=== PATIENT | female | born 1955 | race Caucasian/White ===

== ENCOUNTER 2016-08-03 03:35 | Observation (INO) | payer OTHER ==
[~2016-08-03] VITALS: Ht 165.1 cm; Wt 72.2 kg
[~2016-08-03 03:35] MED LIST: ASPEC81 PO; CALCTAB5 PO; CHOL100010 PO; METO25TA3 PO; MULT-506 PO; OMEG10007 PO; SIMV20TA2 PO
--- NOTE | 2016-08-03 04:28 | EMERGENCY ROOM VISIT NOTE ---
History Report prepared by Carolyn: Angely Chang Under the Supervision of: Dr. Michelle Vasquez M.D. First contact with patient: 04:13 Chief Complaint: RECTAL BLEEDING Stated Complaint: EXCRUCIATING BLEEDING FROM RECTUM Nursing Triage Summary: Patient states that she had a colonoscopy and had polyps removed at 1030 on 08/02. Reports that she began bleeding a moderate amount at 1330. Denies any clots being present. Reports that she has had multiple episodes of bleeding. States that she is starting to feel tired at this time. Denies pain. History of Present Illness The patient is a 61 year old female who presents to the Emergency Room with complaints of persistent rectal bleeding since yesterday afternoon around 1330. The patient states that she had a colonoscopy yesterday morning and had multiple polyps removed, including one that needed to be clamped. A couple of hours after the procedure, she had minimal amount of bleeding that was not concerning to her. A little later in the day she had a moderate amount of rectal bleeding that was bright red in color. Since then, she has had 8 total episodes of bloody bowel movements. The blood has gotten darker in color since her symptoms began. The patient takes 81 mg aspirin daily due to a history of headaches and she notes that she was not instructed to discontinue taking it prior to the procedure. She denies any abdominal or rectal pain. Source of History: patient Onset: yesterday at 1330 Position: other (GI) Symptom Intensity: 8 episodes Timing: other (persistent) Associated Symptoms: No abdominal pain Review of Systems See HPI for pertinent positives & negatives. A total of 10 systems reviewed and were otherwise negative. Past Medical & Surgical Medical Problems: (1) GI bleed (2) HTN (hypertension) Family History Cancer Diabetes mellitus Social History Smoking Status: Never Smoker Marital Status: Occupation Status: employed Current/Historical Medications Scheduled Calcium Carbonate (Caltrate 600), 1,200 MG PO DAILY Cholecalciferol (Vitamin D3), 2,000 INTERUNIT PO DAILY Fish Oil ([place]-3), 1 CAP PO BID Metoprolol Succ (Toprol Xl) (Toprol-Xl), 50 MG PO DAILY Multivitamin (Multivitamin), 1 TAB PO DAILY Simvastatin (Zocor), 20 MG PO QPM Allergies Coded Allergies: No Known Allergies (Unverified , 08/03/16) Physical Exam Vital Signs Date Time Temp Pulse Resp B/P Pulse Ox O2 Delivery O2 Flow Rate FiO2 08/03/16 05:54 90 20 152/74 99 Room Air 08/03/16 04:40 93 20 160/89 94 Room Air 08/03/16 03:39 37.1 100 20 155/87 100 Room Air Physical Exam Vital signs reviewed. General: Well-appearing 61 year old female, in no significant distress. HEENT: No scleral icterus, PERRLA, neck supple. Atraumatic. Cardiovascular: Regular rate and rhythm, no extra sounds. Pulmonary: Clear to auscultation bilaterally, normal work of breathing. Abdomen: Soft, nontender, nondistended, positive bowel sounds. Rectal: Grossly bloody liquid stools. Musculoskeletal: Atraumatic, no peripheral edema. Neurologic: Patient awake alert and oriented x 3 Skin: Warm, dry, no rash Medical Decision & Procedures ER Provider Diagnostic Interpretation: Chest and abdomen x-ray per my interpretation: No free air, no obstruction, lungs are clear. Laboratory Results 08/03/16 03:52 Red Blood Count 3.46, Mean Corpuscular Volume 95.7, Mean Corpuscular Hemoglobin 32.4, Mean Corpuscular Hemoglobin Concent 33.8, Mean Platelet Volume 10.1, Neutrophils (%) (Auto) 65.5, Lymphocytes (%) (Auto) 24.1, Monocytes (%) (Auto) 7.3, Eosinophils (%) (Auto) 2.8, Basophils (%) (Auto) 0.2, Neutrophils # (Auto) 5.89, Lymphocytes # (Auto) 2.17, Monocytes # (Auto) 0.66, Eosinophils # (Auto) 0.25, Basophils # (Auto) 0.02 08/03/16 03:52 Test 08/03/16 03:52 White Blood Count 9.00 K/uL (4.8-10.8) Red Blood Count 3.46 M/uL (4.2-5.4) Hemoglobin 11.2 g/dL (12.0-16.0) Hematocrit 33.1 % (37-47) Mean Corpuscular Volume 95.7 fL (80-100) Mean Corpuscular Hemoglobin 32.4 pg (25-34) Mean Corpuscular Hemoglobin Concent 33.8 g/dl (32-36) Platelet Count 234 K/uL (130-400) Mean Platelet Volume 10.1 fL (7.4-10.4) Neutrophils (%) (Auto) 65.5 % Lymphocytes (%) (Auto) 24.1 % Monocytes (%) (Auto) 7.3 % Eosinophils (%) (Auto) 2.8 % Basophils (%) (Auto) 0.2 % Neutrophils # (Auto) 5.89 K/uL (1.4-6.5) Lymphocytes # (Auto) 2.17 K/uL (1.2-3.4) Monocytes # (Auto) 0.66 K/uL (0.11-0.59) Eosinophils # (Auto) 0.25 K/uL (0-0.5) Basophils # (Auto) 0.02 K/uL (0-0.2) RDW Standard Deviation 45.7 fL (36.4-46.3) RDW Coefficient of Variation 13.2 % (11.5-14.5) Immature Granulocyte % (Auto) 0.1 % Immature Granulocyte # (Auto) 0.01 K/uL (0.00-0.02) Prothrombin Time 10.3 SECONDS (9.0-12.0) Prothromb Time International Ratio 1.0 (0.9-1.1) Activated Partial Thromboplast Time 25.0 SECONDS (21.0-31.0) Partial Thromboplastin Ratio 1.0 Est Creatinine Clear Calc Drug Dose 63.1 ml/min Estimated GFR () 75.8 Estimated GFR (Non- 65.4 BUN/Creatinine Ratio 17.6 (10-20) Calcium Level 8.9 mg/dl (8.5-10.1) Magnesium Level 1.9 mg/dl (1.8-2.4) Total Bilirubin 0.4 mg/dl (0.2-1) Direct Bilirubin < 0.1 mg/dl (0-0.2) Aspartate Amino Transf (AST/SGOT) 14 U/L (15-37) Alanine Aminotransferase (ALT/SGPT) 28 U/L (12-78) Alkaline Phosphatase 58 U/L (45-117) Total Protein 7.2 gm/dl (6.4-8.2) Albumin 4.0 gm/dl (3.4-5.0) Laboratory results per my review. Medications Administered Medications (Trade) Dose Ordered Sig/Michael Route Start Time Stop Time Status Last Admin Dose Admin Sodium Chloride 500 ml @ 999 mls/hr Q31M STAT IV 08/03/16 04:29 08/03/16 04:59 DC 08/03/16 04:29 999 MLS/HR Sodium Chloride (Nss 1000ml) 1,000 ml @ 125 mls/hr Q8H STAT IV 08/03/16 04:29 08/03/16 06:10 DC 08/03/16 04:29 125 MLS/HR ED Course 0423: The patient was evaluated in room B12. A complete history and physical examination was performed. 0429: Ordered NSS 1000 ml @ 125 mls/hr IV, NSS 500 ml @ 999 mls/hr IV. 0546: Per nursing staff, the patient has had 4 episodes of bloody stool, each episode with about 150 cc of blood. Upon reevaluation, the patient is resting comfortably. I discussed laboratory and radiographic results with her. She verbalized agreement of the treatment plan. 0552: I discussed the case with Dr. Crhista Heredia Gastroenterology. 0604: I discussed the case with Dr. Jonn Heredia Hospitalist. The patient will be evaluated for further management. Medical Decision Differential diagnosis: Etiologies such as diverticulosis, AVM, coagulopathy, colitis, inflammatory bowel disease, malignancy, Celestina-Mcgee tear, esophagitis, peptic ulcer disease , variceal bleed, gastritis, epistaxis, fissure, hemorrhoids, as well as others were entertained. This patient was evaluated and appeared to be in no significant distress. Patient has no pain on abdominal exam. Patient has had multiple grossly bloody , movements in the ER. She is found to be anemic with a hemoglobin of 10.9. Patient's vital signs have remained stable. She was typed and crossed for 2 units of PRBCs. I did discuss the case with Dr. Goodwin of gastroenterology who will arrange for colonoscopy this morning. Patient was discussed with Dr. Kiera Hirsch of the hospitalist service will evaluate the patient for further management. Patient is aware of the plan and agrees. Consults Time Called: 0518 Consulting Physician: Dr. Christa Heredia Gastroenter[facility] Returned Call: [phone] The case was discussed and Dr. Goodwin will see the patient for colonoscopy this morning. Additional Consults: Time Called: 0555 Consulted Physician: Dr. Jonn Heredia Hospitalist Returned Call: [phone] Additional Comments: I discussed the case with him. The patient will be evaluated for further management. Impression Primary Impression: GI bleed Additional Impression: Status post colonoscopy with polypectomy Scribe Attestation The scribe's documentation has been prepared under my direction and personally reviewed by me in its entirety. I confirm that the note above accurately reflects all work, treatment, procedures, and medical decision making performed by me. Departure Information Dispostion Being Evaluated By Hospitalist Referrals Vera Michaud D.O. (PCP) Patient Instructions My [facility] Problem Qualifiers Primary Impression: GI bleed GI bleed type/associated pathology: anorectal hemorrhage Qualified Codes: K62.5 - Hemorrhage of anus and rectum
[2016-08-03] MEDS ORDERED: SODIUM CHLORIDE 0.9% 500ML 500 ML IV STA (04:29)
[2016-08-03] MEDS ORDERED: SODIUM CHLORIDE 0.9% 1000ML 1,000 ML IV STA (04:29)
[2016-08-03] MEDS ORDERED: ASPI81TA28 PO (04:34)
[2016-08-03] MEDS ORDERED: CALCTAB5 PO (04:35)
[2016-08-03] MEDS ORDERED: CHOL20007 PO (04:37)
[2016-08-03 04:43] LABS: BASO % 0.2 %; BASO ABS # 0.02 K/uL (0-0.2); COMPLETE YES; EOS % 2.8 %; HEMATOCRIT 33.1 % (37-47); IG% 0.1 %; LYMPH % 24.1 %; LYMPH ABS # 2.17 K/uL (1.2-3.4); MEAN CELL VOLUME 95.7 fL (80-100); MEAN CORPUSCULAR HEMOGLOBIN 32.4 pg (25-34); MEAN CORPUSCULAR HGB CONC 33.8 g/dl (32-36); MEAN PLATELET VOLUME 10.1 fL (7.4-10.4); MONO % 7.3 %; NEUT % 65.5 %; PLATELET COUNT 234 K/uL (130-400); RED BLOOD COUNT 3.46 M/uL (4.2-5.4)
[2016-08-03 04:49] LABS: ISTAT CREATININE 0.8 mg/dl (0.6-1.3); ISTAT HEMOGLOBIN 10.9 g/dl (12.0-16.0); ISTAT IONIZED CALCIUM 1.23 mmol/l (1.12-1.32)
[2016-08-03 05:05] LABS: ALT/SGPT 28 U/L (12-78); AST/SGOT 14 U/L (15-37); BLOOD UREA NITROGEN 16 mg/dl (7-18); BUN/CREATININE RATIO 17.6 (10-20); CALCIUM 8.9 mg/dl (8.5-10.1); CARBON DIOXIDE 25 mmol/L (21-32); CHLORIDE 108 mmol/L (98-107); CREATININE 0.93 mg/dl (0.60-1.20); GLUCOSE 125 mg/dl (70-99); POTASSIUM 4.1 mmol/L (3.5-5.1); SODIUM 143 mmol/L (136-145)
[2016-08-03 05:08] LABS: ALKALINE PHOSPHATASE 58 U/L (45-117)
[2016-08-03 06:29] LABS: ISTAT CREATININE 0.8 mg/dl (0.6-1.3); ISTAT HEMOGLOBIN 9.5 g/dl (12.0-16.0); ISTAT IONIZED CALCIUM 1.16 mmol/l (1.12-1.32)
[2016-08-03] MEDS ORDERED: LORAZEPAM 2 MG/ML 1 ML VIAL IV PRN (06:45)
[2016-08-03] MEDS ORDERED: SODIUM CHLORIDE 0.45% 1000ML 1,000 ML IV SCH (06:45)
[2016-08-03] MEDS ORDERED: ONDANSETRON INJ 2 MG/ML 2 ML VIAL IV PRN (06:45)
[2016-08-03] MEDS ORDERED: NITROGLYCERIN 0.4 MG SL PER TAB CHARGE SL PRN (06:45)
[2016-08-03] MEDS ORDERED: MoRPHine SULFATE 4 MG/ML 1 ML CARP\\VIAL IV PRN (06:45)
[2016-08-03] MEDS ORDERED: TRAMADOL HCL 50 MG TAB PO PRN (06:45)
[2016-08-03] MEDS ORDERED: ACETAMINOPHEN 325 MG TAB PO PRN (06:45)
[2016-08-03 06:52] LABS: PROTHROMBIN TIME (PATIENT) 10.3 SECONDS (9.0-12.0)
--- NOTE | 2016-08-03 07:34 | HISTORY & PHYSICAL EXAMINATION ---
DATE OF ADMISSION: 08/03/2016 PRIMARY CARE PHYSICIAN: Dr. Michaud. Hx obtained from px and records. CHIEF COMPLAINT: Rectal bleeding. HISTORY OF PRESENT ILLNESS: Medical history significant for hypertension, hyperlipidemia. hemorrhoids, polyposis. Yesterday, patient had an outpatient surveillance colonoscopy at [facility]. As per records, multiple polyps resected, a clip was placed in one, and nonbleeding hemorrhoids also noted. Few hours after the procedure, the patient noted rectal bleeding more than encountered from previous colonoscopies before. Greater than 8 bloody BMs. No nausea, no vomiting. Patient feeling lightheaded and dizzy. No chest pain, no shortness of breath. No fever, no chills, no hematemesis, no coffee-ground emesis. Patient brought to the Emergency Room. MEDICAL HISTORY: As above. SURGERIES: She has had section. HOME MEDICATIONS: Include aspirin, vitamin D, Caltrate, Toprol, multivitamins, and Zocor. ALLERGIES: No known drug allergies. FAMILY HISTORY: Colon cancer. PERSONAL SOCIAL HISTORY: Nonsmoker, no chronic intake of alcoholic beverages. [employer] employee. REVIEW OF SYSTEMS: As per HPI. All other ROS negative. PHYSICAL EXAMINATION: VITAL SIGNS: Blood pressure was noted to be 155/87, pulse rate 100, RR 27, temperature 37.1 and sats 100 on room air. GENERAL: Noted to be slightly anxious, no respiratory distress. SKIN: Pallor. HEENT: Pale palpebral conjunctivae. Dry mucosa. NECK: No JVD. Supple. CHEST: Clear to auscultation. HEART: RRR. ABDOMEN: Soft. Some distention. EXTREMITIES: No edema. no tenderness NEUROLOGIC: No gross focality. LABORATORY DATA: Hemoglobin was noted to be 11.25, baseline of 13.8 on April 2015, hematocrit 32, white cells 9, platelets 234. Sodium 143, potassium 4.1, chloride 108, CO2 28, BUN 16, creatinine 0.9, glucose was noted to be 125. ASSESSMENT: 1. Symptomatic anemia 2 to LGIB recent colonoscopy/polypectomy significant decrease hemoglobin from baseline. 2. Hypertension, slightly elevated 3. hyperlipidemia statin therapy. PLAN: PCU monitoring. Orthostatic vitals. Hold home aspirin for now serial HH, transfuse prbc if hemoglobin less than 8. GI consult for GI bleed. ERMD already in touch w/ Dr. Goodwin. DVT prophylaxis, SCDs. RE GI bleed. Full code. MTDD
[2016-08-03] MEDS ORDERED: MIDAZOLAM HCL 1 MG/ML 2ML VIAL ONE (07:50)
[2016-08-03] MEDS ORDERED: FENTANYL CITRATE INJ 50 MCG/1 ML 2 ML VIAL ONE (07:50)
[2016-08-03] MEDS ORDERED: PROPOFOL IV EMULSION 10 MG/ML 20 ML VIAL IV ONE ×2 (07:51→07:52)
[2016-08-03] MEDS ORDERED: LIDOCAINE HCL 2% 2 ML VIAL (20MG/ML) ONE (07:51)
[2016-08-03] MEDS ORDERED: SUCCINYLCHOLINE CHLORIDE 20 MG/ML 10 ML VIAL IV ONE (07:52)
[2016-08-03] MEDS ORDERED: ONDANSETRON INJ 2 MG/ML 2 ML VIAL ONE (07:52)
--- NOTE | 2016-08-03 07:52 | Gastrointestinal Consultation ---
Gastrointestinal Consultation Date of Consultation: Aug 03, 2016 Attending Physician: Dr. Rahman Consulting Physician: Dr. Goodwin Reason for Consultation: rectal bleeding s/p colonoscopy History of Present Illness Patient is a 61 year old female with a family history of colon cancer as wlel as polyps who presented to the ER early this AM with complaints of multiple bloody BMs which began yesterday afternoon. She had a colonoscopy yesterday morning and had 3 polyps removed. Report states 7mm polyp in the transverse removed with hot snare, 10 mm polyps in the descending colon removed with hot snare and a 12 mm polyps in the sigmoid removed with hot snare and clip placed. She felt fine after the colonoscopy and went for lunch. Shortly after getting home she had a liquid BM with some blood. She then went on the have 8- 10 bloody BMs over the last 12 hours and decided to come to the ER. She is on a baby ASA but no Plavix or Coumadin. Past Medical/Surgical History Social History Problems: (1) Status post colonoscopy with polypectomy Status: Acute Past Medical History: polyps Past Surgical History: non-contributory Family History Cancer Diabetes mellitus + family history of colon cancer Social History Smoking Status: Never Smoker Alcohol Use: none Drug Use: none Marital Status: Housing Status: lives with family Occupation Status: employed Allergies Coded Allergies: No Known Allergies (Unverified , 08/03/16) Current Medications Home Meds and Scripts Medications Dose Route/Sig Max Daily Dose Days Date Category Vitamin D3 (Cholecalciferol) 2,000 Unit Tab 2,000 Interunit PO DAILY 90 08/03/16 Reported Caltrate 600 (Calcium Carbonate) 1,500 Mg Tab 1,200 Mg PO DAILY 08/03/16 Reported Aspirin Ec (Aspirin) 81 Mg Tab 81 Mg PO DAILY 08/03/16 Reported [place]-3 (Fish Oil) 1 Ea Cap 1 Cap PO BID 03/17/11 Reported Multivitamin (Multivitamins) Tab 1 Tab PO DAILY 03/17/11 Reported Toprol-Xl (Metoprolol Succinate) 25 Mg Tabcr 50 Mg PO DAILY 03/17/11 Reported Zocor (Simvastatin) 20 Mg Tab 20 Mg PO QPM 03/17/11 Reported Review of Systems 12 systems reviewed and negative except as noted Physical Exam Date Time Temp Pulse Resp B/P Pulse Ox O2 Delivery O2 Flow Rate FiO2 08/03/16 07:03 93 20 163/91 99 Room Air 08/03/16 05:54 90 20 152/74 99 Room Air 08/03/16 04:40 93 20 160/89 94 Room Air 08/03/16 03:39 37.1 100 20 155/87 100 Room Air General Appearance: WD/WN, no apparent distress Eyes: normal inspection, PERRL ENT: normal ENT inspection, hearing grossly normal, pharynx normal Neck: supple, no adenopathy, thyroid normal, no JVD Respiratory/Chest: chest non-tender, lungs clear, normal breath sounds, no respiratory distress, no accessory muscle use Cardiovascular: regular rate, rhythm, no murmur Abdomen: normal bowel sounds, non tender, soft, no pulsatile mass Extremities: normal range of motion, non-tender, normal inspection, no pedal edema Neurologic/Psych: set up / operator II-XII nml as tested, no motor/sensory deficits, alert, normal mood/affect, oriented x 3 Skin: normal color, no jaundice, warm/dry, no rash Laboratory Results Last 24 Hours Test 08/03/16 03:52 08/03/16 04:34 08/03/16 06:14 White Blood Count 9.00 K/uL Red Blood Count 3.46 M/uL Hemoglobin 11.2 g/dL Hematocrit 33.1 % Mean Corpuscular Volume 95.7 fL Mean Corpuscular Hemoglobin 32.4 pg Mean Corpuscular Hemoglobin Concent 33.8 g/dl Platelet Count 234 K/uL Mean Platelet Volume 10.1 fL Neutrophils (%) (Auto) 65.5 % Lymphocytes (%) (Auto) 24.1 % Monocytes (%) (Auto) 7.3 % Eosinophils (%) (Auto) 2.8 % Basophils (%) (Auto) 0.2 % Neutrophils # (Auto) 5.89 K/uL Lymphocytes # (Auto) 2.17 K/uL Monocytes # (Auto) 0.66 K/uL Eosinophils # (Auto) 0.25 K/uL Basophils # (Auto) 0.02 K/uL RDW Standard Deviation 45.7 fL RDW Coefficient of Variation 13.2 % Immature Granulocyte % (Auto) 0.1 % Immature Granulocyte # (Auto) 0.01 K/uL Prothrombin Time 10.3 SECONDS Prothromb Time International Ratio 1.0 Activated Partial Thromboplast Time 25.0 SECONDS Partial Thromboplastin Ratio 1.0 Sodium Level 143 mmol/L Potassium Level 4.1 mmol/L Chloride Level 108 mmol/L Carbon Dioxide Level 25 mmol/L Anion Gap 10.0 mmol/L 18.0 mmol/L 18.0 mmol/L Blood Urea Nitrogen 16 mg/dl Creatinine 0.93 mg/dl Est Creatinine Clear Calc Drug Dose 63.1 ml/min Estimated GFR () 75.8 Estimated GFR (Non- 65.4 BUN/Creatinine Ratio 17.6 Random Glucose 125 mg/dl Calcium Level 8.9 mg/dl Magnesium Level 1.9 mg/dl Total Bilirubin 0.4 mg/dl Direct Bilirubin < 0.1 mg/dl Aspartate Amino Transf (AST/SGOT) 14 U/L Alanine Aminotransferase (ALT/SGPT) 28 U/L Alkaline Phosphatase 58 U/L Total Protein 7.2 gm/dl Albumin 4.0 gm/dl Bedside Hemoglobin 10.9 g/dl 9.5 g/dl Bedside Hematocrit 32 % 28 % Bedside Sodium 141 mEq/L 141 mEq/L Bedside Potassium 4.1 mEq/L 4.2 mEq/L Bedside Chloride 105 mEq/L 106 mEq/L Bedside Total CO2 23 mEq/l 23 mEq/l Bedside Blood Urea Nitrogen 17 mg/dl 16 mg/dl Bedside Creatinine 0.8 mg/dl 0.8 mg/dl Bedside Glucose (other) 133 mg/dl 131 mg/dl Bedside Ionized Calcium (Kurt) 1.23 mmol/l 1.16 mmol/l Impression Patient is a 61 year old female presenting with rectal bleeding after colonoscopy with removal of several polyps. Suspect she has a post-polypectomy bleed. Plan colonoscopy today with goal of identifying bleeding site and providing therapeutic intervention to stop the bleeding. Please keep patient NPO.
[2016-08-03 08:05] LABS: HEMATOCRIT 28.5 % (37-47)
[2016-08-03 08:24] VITALS: O2SAT 98
--- NOTE | 2016-08-03 08:40 | DIAGNOSTIC IMAGING REPORT ---
PA CHEST RADIOGRAPH AND UPRIGHT AND SUPINE AP RADIOGRAPHS OF THE ABDOMEN CLINICAL HISTORY: GI bleed status post colonoscopy. COMPARISON STUDY: No previous studies for comparison. FINDINGS: Lung volumes are normal. Lungs are clear. There is no pneumothorax or pleural effusion. Cardiac size is normal. Mediastinal contours are normal. There is no free air. There is an endoscopic clip which projects over the left. This could be within the rectum or sigmoid colon IMPRESSION: 1. No free air or evidence of bowel obstruction. 2. Endoscopic clip projecting over the pelvis which may be within the sigmoid colon or rectum. 3. No acute cardiopulmonary findings. Electronically signed by: Fransisco Green M.D. 08/03/2016 8:38 AM Dictated Date/Time: 08/03/2016 8:36 AM
[2016-08-03] MEDS ORDERED: MULTIVITAMIN TAB PO SCH (09:00)
[2016-08-03] MEDS ORDERED: METOPROLOL SUCC 25MG EXT REL TAB PO SCH (09:00)
[2016-08-03] MEDS ORDERED: ATROPINE SULFATE 0.1 MG/ML 5ML SYR IV PRN (09:15)
[2016-08-03] MEDS ORDERED: EpHEDrine SULFATE INJ 50 MG/ML AMP IV PRN (09:15)
--- NOTE | 2016-08-03 09:37 | GI REPORT ---
Procedure Date: 08/03/2016 9:00 AM Procedure: Colonoscopy Indications: Rectal bleeding, Treatment of bleeding from polypectomy site Medicines: Propofol per Anesthesia Complications: No immediate complications. Estimated blood loss: Minimal. Estimated Blood Loss: Estimated blood loss was minimal. Procedure: Pre-Anesthesia Assessment: - Prior to the procedure, a History and Physical was performed, and patient medications, allergies and sensitivities were reviewed. The patient's tolerance of previous anesthesia was reviewed. - The risks and benefits of the procedure and the sedation options and risks were discussed with the patient. All questions were answered and informed consent was obtained. - Patient identification and proposed procedure were verified prior to the procedure by the physician and the nurse. The procedure was verified in the pre-procedure area in the procedure room. - Mental Status Examination: alert and oriented. Airway Examination: normal oropharyngeal airway and neck mobility. Respiratory Examination: clear to auscultation. CV Examination: normal. Abdominal Examination: bowel sounds present, abdomen soft and non-tender, no masses or organomegaly noted. - ASA Grade Assessment: II - A patient with mild systemic disease. - The anesthesia plan was to use monitored anesthesia care (MAC). After I obtained informed consent, the scope was passed under direct vision. Throughout the procedure, the patient's blood pressure, pulse, and oxygen saturations were monitored continuously. The scope was introduced through the anus and advanced to the terminal ileum. The colonoscopy was performed without difficulty. The patient tolerated the procedure well. The quality of the bowel preparation was adequate. Findings: The perianal and digital rectal examinations were normal. Pertinent negatives include normal sphincter tone and no palpable rectal lesions. The terminal ileum appeared normal. Clotted blood was found in the entire colon. Oozing blood was seen at 30 cm proximal to the anus with a large vessel visible at prior polypectomy site, secondary to previous polypectomy procedure. To stop active bleeding, two hemostatic clips were successfully placed (MR unsafe). There was no bleeding at the end of the procedure. - Clip intact at other site of polyp removal. No bleeding at that site. (Clip was placed at time of original colonoscopy.) Impression: - The examined portion of the ileum was normal. - Blood in the entire examined colon. - Bleeding at 30 cm proximal to the anus secondary to previous polypectomy. Clips (MR unsafe) were placed. - No specimens collected. Recommendation: - No aspirin, ibuprofen, naproxen, or other non-steroidal anti-inflammatory drugs for 10 days. - Return patient to hospital [facility] for possible discharge same day. - Resume regular diet. Kristy Goodwin D.O. Kristy Goodwin, 08/03/2016 9:36:46 AM This report has been signed electronically. Note Initiated On: 08/03/2016 9:00 AM I attest to the content of the Intraoperative Record and orders documented therein, exceptions below
--- NOTE | 2016-08-03 10:19 | Anesthesiology Progress Note ---
Anesthesia Post Op Note Date & Time Aug 03, 2016 at 10:19 Vital Signs Pain Intensity: 0 Vital Signs Past 12 Hours Date Time Temp Pulse Resp B/P Pulse Ox O2 Delivery O2 Flow Rate FiO2 08/03/16 10:15 36.8 79 16 121/83 96 Room Air 08/03/16 10:00 36.8 80 16 134/68 100 Nasal Cannula 3 08/03/16 09:45 88 16 118/85 100 Nasal Cannula 3 08/03/16 09:35 89 16 132/85 100 Nasal Cannula 3 08/03/16 09:28 36.5 80 16 136/78 100 Nasal Cannula 3 08/03/16 08:24 98 18 161/70 98 Room Air 08/03/16 07:54 94 146/76 103 131/73 109 128/61 08/03/16 07:03 93 20 163/91 99 Room Air 08/03/16 05:54 90 20 152/74 99 Room Air 08/03/16 04:40 93 20 160/89 94 Room Air 08/03/16 03:39 37.1 100 20 155/87 100 Room Air Notes Mental Status: alert / awake / arousable, participated in evaluation Pt Amnestic to Procedure: Yes Nausea / Vomiting: adequately controlled Pain: adequately controlled Airway Patency, RR, SpO2: stable & adequate BP & HR: stable & adequate Hydration State: stable & adequate Anesthetic Complications: no major complications apparent
[2016-08-03 11:15] VITALS: BP 155/84; PULSE 89
[2016-08-03 11:46] VITALS: BP 139/82; PULSE 96
[2016-08-03 12:03] LABS: HEMATOCRIT 25.7 % (37-47)
[2016-08-03 12:15] VITALS: Ht 165.1 cm; Wt 72.2 kg
--- NOTE | 2016-08-03 14:41 | Progress Note ---
Progress Note Pt was seen and examined Sitting in bed comfortable with his 2 sons at bedside Pt said that she feels good she has not had any bleeding in the last few hours she tolerated the diet very well Denies any abdominal pain, dizziness, chest pain and SOB General- very pleasant Head- atraumatic Eyes- PERRL, EOMI ENT- oropharynx clear Neck- supple, no JVD Lungs- clear to auscultation and percussion Heart- regular rhythm Abdomen- normal bowel sounds, soft Extremities- no calf tenderness Neuro- alert, oriented x 3; PERRL, EOMI; no facial palsy Skin- warm & dry GI Bleed Recent colonoscopy done yesterday with polyps removal Possible bleeding at the polys removal Repeat colonoscopy done today showed oozing of blood in the colon 2 hemostatic clips were placed to stop the bleeding. Hgb 8.7, as per GI no need to continue monitor the h/h since bleeding was successfully stopped Case discussed with Gastro Dr. Goodwin that recommends to observe pt for a few hours If there is no active bleeding and she tolerates diet she can be discharge home today. Advised pt to avoid NSAID for at least 10 days Follow up with Gastro Check CBC DVT px On SCD due to GI bleed CODE STATUS FULL CODE Disposition Follow up appointment with Dr. Michaud on Aug 06 at 9:50am Check CBC on Friday
[2016-08-03 15:31] VITALS: BP 135/78; PULSE 92; TEMP 37; O2SAT 97
[2016-08-03 18:10] VITALS: BP 135/78; PULSE 92; TEMP 37; O2SAT 97
--- NOTE | 2016-08-03 18:21 | Discharge Instructions ---
Discharge Instructions Admission Reason for Admission: Gi Bleed Discharge Discharge Diagnosis / Problem: Symptomatic anemia, Hypertension and Dyslipidemia Discharge Goals Goal(s): Decrease discomfort, Improve function, Improve disease control Activity Recommendations Activity Limitations: resume your previous activity (as toleraed) . Instructions / Follow-Up Instructions / Follow-Up Follow up with your primary care physician dr. Michaud on Aug 06 at 9:50 am Check CBC within 1 week Hold aspirin for about 7 to 10 days No NSAID (aleve, naproxen, motrin, ibuprofen) for about 2 weeks If rectal bleeding reoccurs, please seek medical attention Current Hospital Diet Patient's current hospital diet: Regular Diet Discharge Diet Recommended Diet: Regular Diet Procedures Procedures Performed: Colonoscopy with Hemestasis Pending Studies Studies pending at discharge: no Medical Emergencies . Who to Call and When: Medical Emergencies: If at any time you feel your situation is an emergency, please call 911 immediately. . Non-Emergent Contact Non-Emergency issues call your: Primary Care Provider Call Non-Emergent contact if: you have any medication questions . . "Provider Documentation" section prepared by Manda Cross. VTE Core Measure Inpt VTE Proph given/why not?: SCD's, Contraindicated
[2016-08-03] MEDS ORDERED: IV FLUIDS COMPLETED PRN (18:45)
[2016-08-03 19:25] LABS: HEMATOCRIT 24.4 % (37-47)
[2016-08-03] MEDS ORDERED: SIMVASTATIN 20 MG TAB PO SCH (21:00)
--- NOTE | 2016-08-05 00:26 | Discharge Summary ---
Discharge Summary Admission Date: Aug 03, 2016 at 06:13 Discharge Date: Aug 03, 2016 Discharge Disposition: Home Principal Diagnosis: GI bleed Secondary Diagnoses/Problems: Anemia HTN Dyslipidemia Procedures: Colonoscopy Consultations: Gastro Medication Reconciliation Continued Medications: Calcium Carbonate (Caltrate 600) 1,500 Mg Tab 1200 MG PO DAILY Cholecalciferol (Vitamin D3) 2,000 Unit Tab 2000 INTERUNIT PO DAILY for 90 Days, TAB 3 Refills Fish Oil ([place]-3) 1 Ea Cap 1 CAP PO BID, 0 Refills Metoprolol Succ (Toprol Xl) (Toprol-Xl) 25 Mg Tabcr 50 MG PO DAILY, #30 0 Refills Multivitamin (Multivitamin) Tab 1 TAB PO DAILY, 0 Refills Simvastatin (Zocor) 20 Mg Tab 20 MG PO QPM, 0 Refills Discontinued Medications: Aspirin (Aspirin Ec) 81 Mg Tab 81 MG PO DAILY Admission Information HPI (per Admitting provider): Hx obtained from px and records. CHIEF COMPLAINT: Rectal bleeding. HISTORY OF PRESENT ILLNESS: Medical history significant for hypertension, hyperlipidemia. hemorrhoids, polyposis. Yesterday, patient had an outpatient surveillance colonoscopy at [facility]. As per records, multiple polyps resected, a clip was placed in one, and nonbleeding hemorrhoids also noted. Few hours after the procedure, the patient noted rectal bleeding more than encountered from previous colonoscopies before. Greater than 8 bloody BMs. No nausea, no vomiting. Patient feeling lightheaded and dizzy. No chest pain, no shortness of breath. No fever, no chills, no hematemesis, no coffee-ground emesis. Physical Exam (per Admitting): PHYSICAL EXAMINATION: VITAL SIGNS: Blood pressure was noted to be 155/87, pulse rate 100, RR 27, temperature 37.1 and sats 100 on room air. GENERAL: Noted to be slightly anxious, no respiratory distress. SKIN: Pallor. HEENT: Pale palpebral conjunctivae. Dry mucosa. NECK: No JVD. Supple. CHEST: Clear to auscultation. HEART: RRR. ABDOMEN: Soft. Some distention. EXTREMITIES: No edema. no tenderness NEUROLOGIC: No gross focality. Hospital Course GI Bleed Recent colonoscopy done yesterday with polyps removal Possible bleeding at the polys removal Repeat colonoscopy done today showed oozing of blood in the colon 2 hemostatic clips were placed to stop the bleeding. Hgb 8.7, as per GI no need to continue monitor the h/h since bleeding was successfully stopped Case discussed with Gastro Dr. Goodwin that recommends to observe pt for a few hours If there is no active bleeding and she tolerates diet she can be discharge home today. Advised pt to avoid NSAID for at least 10 days Follow up with Gastro Check CBC within 1 week DVT px On SCD due to GI bleed CODE STATUS FULL CODE Disposition Follow up appointment with Dr. Mihcaud on Aug 06 at 9:50am Check CBC on Friday Total time spent on discharge = 35 minutes This includes examination of the patient, discharge planning, medication reconciliation, and communication with other providers. Discharge Instructions Please take this sheet to every appointment for the next month Discharge Instructions Admission Reason for Admission: Gi Bleed Discharge Discharge Diagnosis / Problem: Symptomatic anemia, Hypertension and Dyslipidemia Discharge Goals Goal(s): Decrease discomfort, Improve function, Improve disease control Activity Recommendations Activity Limitations: resume your previous activity (as toleraed) . Instructions / Follow-Up Instructions / Follow-Up Follow up with your primary care physician dr. Michaud on Aug 06 at 9:50 am Check CBC within 1 week Hold aspirin for about 7 to 10 days No NSAID (aleve, naproxen, motrin, ibuprofen) for about 2 weeks If rectal bleeding reoccurs, please seek medical attention Current Hospital Diet Patient's current hospital diet: Regular Diet Discharge Diet Recommended Diet: Regular Diet Procedures Procedures Performed: Colonoscopy with Hemestasis Pending Studies Studies pending at discharge: no Medical Emergencies . Who to Call and When: Medical Emergencies: If at any time you feel your situation is an emergency, please call 911 immediately. . Non-Emergent Contact Non-Emergency issues call your: Primary Care Provider Call Non-Emergent contact if: you have any medication questions . . "Provider Documentation" section prepared by Manda Cross. VTE Core Measure Inpt VTE Proph given/why not?: SCD's, Contraindicated Signed: Signed: The status of this report is Draft * If report status is Draft, the document has not been finalized by the responsible provider. Additional Copies To Vera Michaud D.O.
== END 2016-08-03 20:06 | disposition home or self-care (01) ==
LOC: ENRESERVDT → ENRESERVTM → C.EDB 03:37 → UNDOADMOB 06:13 → C.EDINP 06:13 → INTOOBSV 06:13 → C.EDINP 10:08 → EDBEDREQSVC 10:13 → EDBEDREQTM 10:13 → EDBEDREQ 10:13 → EDBEDREQSVC 10:14 → C.3E 10:49 → C.EDINP 10:49 → C.3E 10:49 → UNDODISOB 20:06
PROVIDERS: ADMIT Internal Medicine; ATTEND Internal Medicine
PROC: 0W3P8ZZ Control Bleeding in Gastrointestinal Tract, Via Natural or Artificial Opening Endoscopic (ICD-10-PCS; principal; 2016-08-03 07:40)
DX: K92.2 Gastrointestinal hemorrhage, unspecified (principal); D50.0 Iron deficiency anemia secondary to blood loss (chronic); I10 Essential (primary) hypertension; E78.5 Hyperlipidemia, unspecified

== ENCOUNTER → 2016-10-21 | Outpatient (CLI) | payer OTHER ==
[~2016-10-21] MED LIST changes: -ASPEC81 PO; -CHOL100010 PO; +CHOL20007 PO
== END | disposition home or self-care (01) ==
LOC: C.CPL 12:11
PROVIDERS: ATTEND Orthopaedic Surgery
DX: Z01.810 Encounter for preprocedural cardiovascular examination (principal)

== ENCOUNTER → 2017-04-04 | Outpatient (CLI) | payer OTHER ==
--- NOTE | 2017-04-04 13:42 | MAMMOGRAPHY REPORT ---
BILATERAL DIGITAL SCREENING MAMMOGRAM WITH CAD: 04/04/2017 CLINICAL HISTORY: Routine screening. TECHNIQUE: Current study was also evaluated with a Computer Aided Detection (CAD) system. Bilateral CC and MLO views were obtained. COMPARISON: Comparison is made to exams dated: 04/03/2016 mammogram, 03/31/2015 mammogram, 4 mammogram, 03/24/2013 mammogram, 03/18/2012 mammogram, and 03/11/2011 mammogram - [facility]. BREAST COMPOSITION: There are scattered areas of fibroglandular density in both breasts. FINDINGS: No suspicious masses, calcifications, or areas of architectural distortion are noted in ei ther breast. There has been no significant interval change compared to prior exams. IMPRESSION: ACR BI-RADS CATEGORY 1: NEGATIVE There is no mammographic evidence of malignancy. A 1 year screening mammogram is recommended. The pa tient will receive written notification of the results. Approximately 10% of breast cancers are not detected with mammography. A negative mammographic report should not delay biopsy if a clinically suggestive mass is present. Nalini Steinberg M.D. ah/:04/04/2017 07:33:26 [employer] Worker: Bozena MACHADO(R)(M), [facility] letter sent: Normal 1/2 BI-RADS Code: ACR BI-RADS Category 1: Negative
== END | disposition home or self-care (01) ==
LOC: C.MAMM 07:08
PROVIDERS: ATTEND Physician Assistant
DX: Z12.31 Encounter for screening mammogram for malignant neoplasm of breast (principal)